=== PATIENT | male | born 1990 | race African-American/Black ===

== ENCOUNTER 2017-08-12 09:34 | Emergency (ER) | payer MEDICAID ==
[~2017-08-12] VITALS: Ht 182.9 cm; Wt 84.0 kg
[2017-08-12] MEDS ORDERED: KETOROLAC 60MG/2ML VIAL IM ONE (10:45)
[2017-08-12 10:48] VITALS: BP 123/78
== END 2017-08-12 11:09 | disposition home or self-care (01) ==
LOC: ER 10:03
DX: M54.5 Low back pain (principal); F17.200 Nicotine dependence, unspecified, uncomplicated; F12.10 Cannabis abuse, uncomplicated
CPT/HCPCS: 96372; 99283; J1885

== ENCOUNTER 2018-05-11 23:14 | Emergency (ER) | payer MEDICAID ==
[~2018-05-11] VITALS: Ht 182.9 cm; Wt 91.0 kg
[2018-05-12] MEDS ORDERED: KETOROLAC 60MG/2ML VIAL IM ONE (05:00)
[2018-05-12 05:35] VITALS: BP 142/74
== END 2018-05-12 05:40 | disposition home or self-care (01) ==
LOC: ER 05-12 00:26
DX: M54.40 Lumbago with sciatica, unspecified side (principal); F12.10 Cannabis abuse, uncomplicated; Z90.49 Acquired absence of other specified parts of digestive tract
CPT/HCPCS: 96372; 99283; J1885

== ENCOUNTER 2018-05-27 10:52 | Emergency (ER) | payer MEDICAID ==
[~2018-05-27] VITALS: Ht 182.9 cm; Wt 81.0 kg
[2018-05-27 10:55] VITALS: BP 138/82
== END 2018-05-27 13:10 | disposition left against medical advice (07) ==
LOC: ER 11:30
DX: M79.605 Pain in left leg (principal); Z53.21 Procedure and treatment not carried out due to patient leaving prior to being seen by health care provider

== ENCOUNTER 2019-02-09 19:47 | Emergency (ER) | payer MEDICAID ==
[~2019-02-09] VITALS: Ht 182.9 cm; Wt 82.0 kg
[2019-02-09 20:17] VITALS: BP 125/84
== END 2019-02-09 22:35 | disposition home or self-care (01) ==
LOC: ER 20:34
DX: S50.01XA Contusion of right elbow, initial encounter (principal); L03.113 Cellulitis of right upper limb; R00.2 Palpitations; F41.9 Anxiety disorder, unspecified; F12.10 Cannabis abuse, uncomplicated; Z90.89 Acquired absence of other organs; W22.8XXA Striking against or struck by other objects, initial encounter; Y93.89 Activity, other specified; Y92.89 Other specified places as the place of occurrence of the external cause; Y99.8 Other external cause status
CPT/HCPCS: 73080; 93005; 99283

== ENCOUNTER 2019-05-26 12:37 | Emergency (ER) | payer MEDICAID ==
[~2019-05-26] VITALS: Ht 180.3 cm; Wt 95.0 kg
[2019-05-26 18:35] VITALS: BP 122/85
== END 2019-05-26 18:36 | disposition home or self-care (01) ==
LOC: ER 12:37
DX: S06.0X9A Concussion with loss of consciousness of unspecified duration, initial encounter (principal); V49.9XXA Car occupant (driver) (passenger) injured in unspecified traffic accident, initial encounter; Y93.9 Activity, unspecified; Y92.410 Unspecified street and highway as the place of occurrence of the external cause
CPT/HCPCS: 70450; 73030; 99284; J7040

== ENCOUNTER 2020-04-04 22:52 | Emergency (ER) | payer MEDICAID ==
[~2020-04-04] VITALS: Ht 182.9 cm; Wt 94.0 kg
[2020-04-04] MEDS ORDERED: IBUPROFEN 600MG TABLET PO ONE (23:15)
[2020-04-04] MEDS ORDERED: BACITRACIN ZINC OINT UDPKT TOP ONE (23:15)
[2020-04-04] MEDS ORDERED: LIDOCAINE HCL/PF 1% 10 MG/ML 5ML VIAL IJ ONE (23:15)
[2020-04-04 23:38] VITALS: BP 133/81
== END 2020-04-05 00:07 | disposition home or self-care (01) ==
LOC: ER 22:52
DX: S61.210A Laceration without foreign body of right index finger without damage to nail, initial encounter (principal); W26.8XXA Contact with other sharp object(s), not elsewhere classified, initial encounter; Y93.G1 Activity, food preparation and clean up; Y92.89 Other specified places as the place of occurrence of the external cause
CPT/HCPCS: 29130; 99283; J3490

== ENCOUNTER 2021-12-03 09:07 | Emergency (ER) | payer MEDICAID ==
[~2021-12-03] VITALS: Ht 182.9 cm; Wt 91.0 kg
[2021-12-03] MEDS ORDERED: ONDANSETRON 4MG ODT PO ONE (09:30)
[2021-12-03] MEDS ORDERED: HYDROCODONE/ACETAMINOPHEN 5/325MG TABLET PO ONE (09:30)
[2021-12-03] MEDS ORDERED: KETOROLAC 60MG/2ML VIAL IM ONE (11:15)
[2021-12-03] MEDS ORDERED: IBUP-2030 MT (11:30)
[2021-12-03] MEDS ORDERED: TRAM50TA MT (11:30)
[2021-12-03 11:48] VITALS: BP 119/77
== END 2021-12-03 11:50 | disposition home or self-care (01) ==
LOC: ER 09:07
DX: M54.2 Cervicalgia (principal); M54.9 Dorsalgia, unspecified; S09.8XXA Other specified injuries of head, initial encounter; W18.12XA Fall from or off toilet with subsequent striking against object, initial encounter; Y93.89 Activity, other specified; Y92.89 Other specified places as the place of occurrence of the external cause; Z98.890 Other specified postprocedural states
CPT/HCPCS: 71250; 72100; 72125; 76705; 96372; 99284; J1885; Q0162

== ENCOUNTER 2023-06-16 09:37 | Emergency (ER) | payer MEDICAID ==
[~2023-06-16] VITALS: Ht 175.3 cm; Wt 82.0 kg
[~2023-06-16 09:37] MED LIST: IBUP-2030 MT; TRAM50TA MT
[2023-06-16 09:43] VITALS: O2SAT 100
[2023-06-16 09:45] VITALS: BP 124/71; PULSE 101; RESP 18; TEMP 98.3
[2023-06-16] MEDS ORDERED: ACETAMINOPHEN 325MG TABLET PO ONE (09:45)
[2023-06-16] MEDS ORDERED: IBUPROFEN 400MG TABLET PO ONE (09:45)
[2023-06-16] MEDS ORDERED: CYCLOBENZAPRINE 10MG TABLET PO ONE (11:30)
== END 2023-06-16 14:01 | disposition home or self-care (01) ==
LOC: ER 09:37
DX: M62.838 Other muscle spasm (principal)
CPT/HCPCS: 73560; 99284

== ENCOUNTER 2024-04-18 19:11 | Emergency (ER) | payer MEDICAID ==
[~2024-04-18] VITALS: Ht 180.3 cm; Wt 109.0 kg
[2024-04-18 19:59] VITALS: O2SAT 100
[2024-04-18 21:13] LABS: CHLORIDE 103 mEq/L (98-107); POTASSIUM 3.3 mEq/L (3.5-5.1); SODIUM 137 mEq/L (136-145)
[2024-04-18 21:14] LABS: CARBON DIOXIDE 27 mEq/L (21-32)
[2024-04-18 21:15] LABS: HEMOGLOBIN. 16.2 g/dL (14.0-18.0); WHITE BLOOD COUNT 7.6 x1000/uL (4.5-11.0)
[2024-04-18 21:17] LABS: BASOPHILS % 0.3 % (0.0-2.0); EOSINOPHILS % 1.8 % (0.0-5.0); HEMATOCRIT. 47.5 % (42.0-52.0); LYMPHOCYTES % 23.6 % (20.0-50.0); MEAN CORPUSCULAR HEMOGLOBIN 32.2 pg (28.0-32.0); MEAN CORPUSCULAR HGB CONC 34.1 g/dL (31.0-37.0); MEAN CORPUSCULAR VOLUME 94.3 fL (80.0-94.0); MEAN PLATELET VOLUME 8.3 fl (7.4-10.4); MONOCYTES % 8.2 % (2.0-8.0); NEUTROPHILS % 66.1 % (40.0-76.0); PLATELET 209 x1000/uL (130-400); RED BLOOD CELL COUNT 5.04 mill/uL (4.7-6.1); RED CELL DISTRIBUTION WIDTH 14.6 % (11.6-14.6)
[2024-04-18 21:19] LABS: GLUCOSE 100 mg/dL (70-105)
[2024-04-18 21:20] LABS: UREA NITROGEN BLOOD 9 mg/dL (9-23)
[2024-04-18 21:21] LABS: ALANINE AMINOTRANSFERASE 176 IU/L (10-49); ALBUMIN 5.1 g/dL (3.2-4.8); ASPARTATE AMINOTRANSFERASE 167 IU/L (<34); BILIRUBIN DIRECT 0.2 mg/dL (<=3.0)
[2024-04-18 21:22] LABS: BILIRUBIN TOTAL 0.6 mg/dL (0.1-1.0); PROTEIN TOTAL 8.1 g/dL (6.0-8.3)
[2024-04-18 23:34] LABS: CLARITY URINE CLEAR (CLEAR); COLOR URINE YELLOW (YELLOW); GLUCOSE URINE NEGATIVE (NEGATIVE); KETONES URINE NEGATIVE (NEGATIVE); NITRITE URINE NEGATIVE (NEGATIVE); OCCULT BLOOD URINE NEGATIVE (NEGATIVE); PROTEIN URINE TRACE (NEGATIVE)
[2024-04-18 23:35] LABS: LEUKOCYTE ESTERASE URINE NEGATIVE (NEGATIVE); UROBILINOGEN URINE 0.2 E.U./dL (0.2-1.0)
[2024-04-18 23:38] LABS: BACTERIA URINE TRACE; RBC URINE NONE SEEN /hpf (0-2); SQUAMOUS EPITHELIAL CELL URINE RARE /lpf (RARE/1+); WBC URINE 0-2 /hpf (0-2)
[2024-04-19] MEDS ORDERED: KETOROLAC 15MG/ML VIAL IV ONE (01:00)
[2024-04-19] MEDS ORDERED: NAPR-1164 MT (04:15)
[2024-04-19 04:30] VITALS: TEMP 36.44736; O2SAT 100
[2024-04-19 04:48] VITALS: BP 146/91; PULSE 88; RESP 16
[2024-04-19] MEDS: KETOROLAC 15MG/ML VIAL IV NR (04:48)
[2024-04-19] MEDS ORDERED: IOHEXOL-300 100 ML BOTTLE ONE (06:47)
== END 2024-04-19 04:49 | disposition home or self-care (01) ==
LOC: ER 19:11
DX: R10.11 Right upper quadrant pain (principal); R07.89 Other chest pain; F12.90 Cannabis use, unspecified, uncomplicated; Z90.49 Acquired absence of other specified parts of digestive tract
CPT/HCPCS: 99285; 80076; 80048; 81003; 85025; 36415; 74177; 96374; 71101; 73560; Q9967; J1885

== ENCOUNTER 2024-10-19 00:56 | Emergency (ER) | payer MEDICAID ==
[~2024-10-19] VITALS: Ht 180.3 cm; Wt 105.0 kg
[~2024-10-19 00:56] MED LIST changes: +NAPR-1164 MT
[2024-10-19 00:59] VITALS: TEMP 36.7; O2SAT 98
[2024-10-19] MEDS ORDERED: HYDROXYZINE 25MG TABLET PO ONE (01:45)
[2024-10-19] MEDS: IBUPROFEN 600MG TABLET PO STA (02:36)
[2024-10-19] MEDS: HYDROXYZINE 25MG TABLET PO NR (02:37)
[2024-10-19 03:05] LABS: BASOPHILS % 0.3 % (0.0-2.0); EOSINOPHILS % 2.2 % (0.0-5.0); HEMATOCRIT. 44.3 % (42.0-52.0); HEMOGLOBIN. 14.9 g/dL (14.0-18.0); LYMPHOCYTES % 28.4 % (20.0-50.0); MEAN CORPUSCULAR HEMOGLOBIN 31.5 pg (28.0-32.0); MEAN CORPUSCULAR HGB CONC 33.6 g/dL (31.0-37.0); MEAN CORPUSCULAR VOLUME 93.6 fL (80.0-94.0); MEAN PLATELET VOLUME 8.5 fl (7.4-10.4); MONOCYTES % 9.6 % (2.0-8.0); NEUTROPHILS % 59.5 % (40.0-76.0); PLATELET 278 x1000/uL (130-400); RED BLOOD CELL COUNT 4.73 mill/uL (4.7-6.1); RED CELL DISTRIBUTION WIDTH 14.7 % (11.6-14.6); WHITE BLOOD COUNT 8.7 x1000/uL (4.5-11.0)
[2024-10-19 03:28] LABS: CHLORIDE 106 mEq/L (98-107); POTASSIUM 3.6 mEq/L (3.5-5.1); SODIUM 140 mEq/L (136-145)
[2024-10-19 03:29] LABS: CALCIUM 9.1 mg/dL (8.7-10.4); CARBON DIOXIDE 25 mEq/L (21-32)
[2024-10-19 03:34] LABS: CREATININE 0.9 mg/dL (0.6-1.3); GLUCOSE 100 mg/dL (70-105); UREA NITROGEN BLOOD 10 mg/dL (9-23)
[2024-10-19 03:47] LABS: TROPONIN I HIGH SENSITIVITY < 4 ng/L (3.0-53)
[2024-10-19 05:00] LABS: TROPONIN I HIGH SENSITIVITY < 4 ng/L (3.0-53)
[2024-10-19 05:17] VITALS: BP 115/78; PULSE 66; RESP 18; O2SAT 99
== END 2024-10-19 05:19 | disposition home or self-care (01) ==
LOC: ER 00:56
DX: R07.89 Other chest pain (principal); R20.2 Paresthesia of skin; F12.10 Cannabis abuse, uncomplicated; Z90.49 Acquired absence of other specified parts of digestive tract
CPT/HCPCS: 36415; 71045; 80048; 84484; 85025; 93005; 99285

== ENCOUNTER 2024-12-08 18:01 | Emergency (ER) | payer MEDICAID ==
[~2024-12-08] VITALS: Ht 180.3 cm; Wt 95.2 kg
[2024-12-08 18:06] VITALS: O2SAT 97
[2024-12-08 18:07] VITALS: BP 154/85; PULSE 71; RESP 16; TEMP 36.7; O2SAT 99
[2024-12-09 01:24] LABS: BASOPHILS % 0.4 % (0.0-2.0); EOSINOPHILS % 0.9 % (0.0-5.0); HEMATOCRIT. 44.5 % (42.0-52.0); HEMOGLOBIN. 15.4 g/dL (14.0-18.0); LYMPHOCYTES % 29.8 % (20.0-50.0); MEAN CORPUSCULAR HEMOGLOBIN 31.9 pg (28.0-32.0); MEAN CORPUSCULAR HGB CONC 34.5 g/dL (31.0-37.0); MEAN CORPUSCULAR VOLUME 92.4 fL (80.0-94.0); MEAN PLATELET VOLUME 8.2 fl (7.4-10.4); MONOCYTES % 10.5 % (2.0-8.0); NEUTROPHILS % 58.4 % (40.0-76.0); PLATELET 280 x1000/uL (130-400); RED BLOOD CELL COUNT 4.82 mill/uL (4.7-6.1); RED CELL DISTRIBUTION WIDTH 14.5 % (11.6-14.6); WHITE BLOOD COUNT 8.3 x1000/uL (4.5-11.0)
[2024-12-09 01:30] LABS: CHLORIDE 104 mEq/L (98-107); POTASSIUM 3.8 mEq/L (3.5-5.1); SODIUM 141 mEq/L (136-145)
[2024-12-09 01:31] LABS: CALCIUM 10.2 mg/dL (8.7-10.4); CARBON DIOXIDE 30 mEq/L (21-32)
[2024-12-09 01:36] LABS: GLUCOSE 92 mg/dL (70-105); UREA NITROGEN BLOOD 7 mg/dL (9-23)
[2024-12-09 01:38] LABS: ALANINE AMINOTRANSFERASE 30 IU/L (10-49); ALBUMIN 4.7 g/dL (3.2-4.8); ASPARTATE AMINOTRANSFERASE 31 IU/L (<34); BILIRUBIN DIRECT 0.3 mg/dL (<=3.0)
[2024-12-09 01:39] LABS: PROTEIN TOTAL 8.1 g/dL (6.0-8.3)
[2024-12-09 01:52] LABS: TROPONIN I HIGH SENSITIVITY < 4 ng/L (3.0-53)
[2024-12-09 02:56] LABS: D-DIMER < 0.19 mg/L FEU (<0.50); PARTIAL THROMBOPLASTIN TIME 31.4 sec (23.4-31.0); PROTHROMBIN TIME 11.2 sec (9.6-11.0)
== END 2024-12-09 03:45 | disposition home or self-care (01) ==
LOC: ER 18:07
DX: R07.89 Other chest pain (principal); M79.602 Pain in left arm; R20.0 Anesthesia of skin; R20.2 Paresthesia of skin; N28.9 Disorder of kidney and ureter, unspecified; F12.90 Cannabis use, unspecified, uncomplicated; Z90.49 Acquired absence of other specified parts of digestive tract; Z79.899 Other long term (current) drug therapy
CPT/HCPCS: 36415; 71045; 80048; 80076; 83880; 84484; 85025; 85379; 93005; 99285

== ENCOUNTER 2025-03-05 22:02 | Emergency (ER) | payer SELFPAY ==
[~2025-03-05] VITALS: Ht 180.3 cm; Wt 100.0 kg
[2025-03-05 22:21] VITALS: O2SAT 98
[2025-03-05 22:22] VITALS: BP 133/81; PULSE 83; RESP 18; TEMP 36.7; O2SAT 98
== END 2025-03-05 23:45 | disposition left against medical advice (07) ==
LOC: ER 22:02
DX: R07.9 Chest pain, unspecified (principal); Z53.21 Procedure and treatment not carried out due to patient leaving prior to being seen by health care provider
CPT/HCPCS: 93005